=== PATIENT | female | born 1975 | race Two or more races ===

== ENCOUNTER 2018-07-21 19:43 | Emergency (ER) | payer OTHER ==
[~2018-07-21] VITALS: Ht 154.9 cm; Wt 80.0 kg
[2018-07-21] MEDS ORDERED: ACETAMINOPHEN 325 MG TABLET PO ONE (20:00)
[2018-07-21] MEDS ORDERED: PROCHLORPERAZINE 5 MG/ML, 2ML IVPush ONE (20:00)
[2018-07-21] MEDS ORDERED: KETOROLAC 30 MG/1 ML ONE (20:00)
[2018-07-21] MEDS ORDERED: DIPHENHYDRAMINE 50 MG/ML, 1ML IVPush ONE (20:00)
[2018-07-21] MEDS ORDERED: SODIUM CHLORIDE FLUSH 10ML SYR IVF ONE (20:00)
[2018-07-21] MEDS ORDERED: PROCHLORPERAZINE 5 MG/ML, 2ML ONE (20:00)
[2018-07-21] MEDS ORDERED: SODIUM CHLORIDE 0.9% 1,000ML IVBOLUS ONE (20:00)
[2018-07-21] MEDS ORDERED: DIPHENHYDRAMINE 50 MG/ML, 1ML ONE (20:00)
[2018-07-21] MEDS ORDERED: ACETAMINOPHEN 325 MG TABLET ONE ×2 (20:01→21:19)
[2018-07-21] MEDS: KETOROLAC 30 MG/1 ML IVPush ONE ×2 (20:12→20:30)
[2018-07-21 21:21] VITALS: BP 129/77
== END 2018-07-21 21:46 | disposition home or self-care (01) ==
LOC: ED 21:20
DX: G43.C0 Periodic headache syndromes in child or adult, not intractable (principal); R11.2 Nausea with vomiting, unspecified
CPT/HCPCS: 70450; 96361; 96374; 96375; 99284; J0780; J1200; J1885; J7030